=== PATIENT | male | born 1990 | race Two or more races ===

== ENCOUNTER 2023-09-01 23:03 | Emergency (ER) | payer MEDICAID, OTHER ==
[~2023-09-01] VITALS: Ht 175.3 cm; Wt 84.0 kg
[2023-09-01 23:21] VITALS: BP 113/79; PULSE 103; RESP 16; TEMP 98.2
[2023-09-02] MEDS ORDERED: ACETAMINOPHEN 325 MG TAB PO ONE
[2023-09-02 00:31] VITALS: O2SAT 99
== END 2023-09-02 01:31 | disposition left against medical advice (07) ==
LOC: EDBD 23:03 → ER 23:03
DX: S12.490A Other displaced fracture of fifth cervical vertebra, initial encounter for closed fracture (principal); S12.590A Other displaced fracture of sixth cervical vertebra, initial encounter for closed fracture; Z87.891 Personal history of nicotine dependence; V89.2XXA Person injured in unspecified motor-vehicle accident, traffic, initial encounter; Y93.I9 Activity, other involving external motion; Y92.89 Other specified places as the place of occurrence of the external cause; Y99.8 Other external cause status
CPT/HCPCS: 70450; 72125